=== PATIENT | female | born 1995 | race African-American/Black ===

== ENCOUNTER 2024-02-24 08:05 | Emergency (ER) | payer OTHER ==
[~2024-02-24] VITALS: Ht 167.6 cm; Wt 154.2 kg
[2024-02-24 09:30] VITALS: BP 141/78; PULSE 100; RESP 18; TEMP 98.3; O2SAT 99
[2024-02-24 10:13] LABS: Eosinophils # (auto) 0 10 ^3/uL (0-0.8); Lymphocytes # (auto) 0.9 10 ^3/uL (0.4-5.4); Red Cell Distribution Width 16.4 % (11.8-14.3)
[2024-02-24 10:14] LABS: Basophils # (auto) 0 10 ^3/uL (0-0.2); Basophils % (auto) 0.3 % (0.0-2.0); Hematocrit 38.5 % (36.0-46.0); Hemoglobin 11.7 g/dL (12.2-16.2); Lymphocytes % (auto) 6.8 % (10.0-50.0); Mean Corpuscular Hemoglobin 21.5 pg (28.0-32.0); Mean Corpuscular Hgb Conc. 30.5 g/dL (32.0-36.0); Mean Corpuscular Volume 70.6 fL (80.0-100.0); Monocytes # (auto) 1.4 10 ^3/uL (0-1.3); Monocytes % (auto) 10.5 % (0.0-12.0); Neutrophils # (auto) 10.6 10 ^3/uL (1.6-8.6); Neutrophils % (auto) 82.4 % (37.0-80.0); Red Blood Cells 5.46 10^6/uL (4.0-5.20); White Blood Cell 12.9 10^3/uL (4.4-10.8)
[2024-02-24 10:20] LABS: Chloride 104 mmol/L (98-107); Potassium 3.9 mmol/L (3.5-5.1); Sodium 134 mmol/L (136-145)
[2024-02-24 10:21] LABS: Anion Gap 5 (5-15); Calcium 9.4 mg/dL (8.5-10.1); Carbon Dioxide 25 mmol/L (20-30)
[2024-02-24 10:26] LABS: Glucose 100 mg/dL (74-106)
[2024-02-24 10:41] LABS: BUN/Creatinine Ratio 4.4 (10.0-20.0); Blood Urea Nitrogen < 5 mg/dL (9-23)
[2024-02-24 11:25] LABS: Urine Bacteria FEW /hpf (None Seen); Urine Blood 2+ /uL (Negative); Urine Clarity Turbid (Clear); Urine Color Colorless (Yellow); Urine Protein, UAD 1+ (Negative); Urine Specific Gravity 1.006 (1.001-1.035); Urine Urobilinogen Normal (Negative); Urine WBC 706 /hpf (0 - 5); Urine WBC Clumps PRESENT /hpf (None Seen); Urine pH 5.5 (5.0-9.0)
[2024-02-24] MEDS: HYDROcodone-ACET 10/325MG TAB PO ONE (12:08)
[2024-02-24] MEDS: cefTRIAXone SOD 1,000 MG VL IM ONE (12:09)
[2024-02-24] MEDS ORDERED: NITR-87 PO (13:12)
== END 2024-02-24 13:17 | disposition home or self-care (01) ==
LOC: ER 08:05
DX: N30.90 Cystitis, unspecified without hematuria (principal); Z32.02 Encounter for pregnancy test, result negative
CPT/HCPCS: 36415; 80048; 81001; 81025; 85025; 96372; 99283; J0696

== ENCOUNTER 2024-07-11 13:06 | Emergency (ER) | payer OTHER ==
[~2024-07-11] VITALS: Ht 167.6 cm; Wt 154.2 kg
[~2024-07-11 13:06] MED LIST: NITR-87 PO
[2024-07-11 15:18] VITALS: BP 127/88; PULSE 77; RESP 18; TEMP 98; O2SAT 95
[2024-07-11 16:10] LABS: Basophils # (auto) 0.1 10 ^3/uL (0-0.2); Eosinophils # (auto) 0.1 10 ^3/uL (0-0.8); Eosinophils % (auto) 1.6 % (0.0-7.0); Lymphocytes # (auto) 1.7 10 ^3/uL (0.4-5.4); Monocytes % (auto) 8.5 % (0.0-12.0)
[2024-07-11 16:12] LABS: Basophils % (auto) 0.8 % (0.0-2.0); Hematocrit 39.9 % (36.0-46.0); Lymphocytes % (auto) 22.2 % (10.0-50.0); Mean Corpuscular Hemoglobin 22.9 pg (28.0-32.0); Mean Corpuscular Hgb Conc. 32.6 g/dL (32.0-36.0); Mean Corpuscular Volume 70.2 fL (80.0-100.0); Monocytes # (auto) 0.6 10 ^3/uL (0-1.3); Neutrophils # (auto) 5.1 10 ^3/uL (1.6-8.6); Neutrophils % (auto) 66.9 % (37.0-80.0); Nucleated Red Blood Cells % 0.1 %; Platelet Count (auto) 267 10^3/uL (140-450); Red Blood Cells 5.68 10^6/uL (4.0-5.20); Red Cell Distribution Width 16.9 % (11.8-14.3); White Blood Cell 7.6 10^3/uL (4.4-10.8)
[2024-07-11 16:23] LABS: Urine Bacteria FEW /hpf (None Seen); Urine Blood Negative /uL (Negative); Urine Clarity Turbid (Clear); Urine Color Yellow (Yellow); Urine Mucus FEW (None Seen); Urine Protein, UAD TRACE (Negative); Urine Specific Gravity 1.027 (1.001-1.035); Urine Urobilinogen Normal (Negative); Urine WBC 1 /hpf (0 - 5); Urine pH 5.5 (5.0-9.0)
[2024-07-11 16:29] LABS: Chloride 106 mmol/L (98-107); Sodium 136 mmol/L (136-145)
[2024-07-11 16:30] LABS: Anion Gap 5 (5-15); Carbon Dioxide 25 mmol/L (20-30)
[2024-07-11 16:31] LABS: Calcium 9.4 mg/dL (8.7-10.4)
[2024-07-11 16:35] LABS: Glucose 96 mg/dL (74-106)
[2024-07-11 16:36] LABS: BUN/Creatinine Ratio 10.7 (10.0-20.0); Blood Urea Nitrogen 9 mg/dL (9-23)
== END 2024-07-11 18:54 | disposition home or self-care (01) ==
LOC: ER 13:06
DX: O20.0 Threatened abortion (principal); R10.2 Pelvic and perineal pain; Z3A.01 Less than 8 weeks gestation of pregnancy; Z79.899 Other long term (current) drug therapy
CPT/HCPCS: 36415; 76801; 76817; 80048; 81001; 81025; 84702; 85025